=== PATIENT | male | born 1950 | race Caucasian/White ===

== ENCOUNTER 2020-10-21 10:15 | Outpatient (CLI) | payer MEDICARE ==
[2020-10-21 11:19] LABS: Estimated GFR-MDRD - POC Greater than 90
== END 2020-10-21 10:16 | disposition home or self-care (01) ==
LOC: CSHCT 10:15
PROVIDERS: ATTEND Otolaryngology Plastic Surgery within the Head & Neck
DX: R59.0 Localized enlarged lymph nodes (principal); J35.1 Hypertrophy of tonsils; J35.8 Other chronic diseases of tonsils and adenoids
CPT/HCPCS: 70491; 82565

== ENCOUNTER 2020-10-28 08:40 | Outpatient (CLI) | payer MEDICARE ==
[2020-10-28 10:35] LABS: Hemoglobin 15.6 g/dL (13.5-17.5)
[2020-10-28 10:51] LABS: Anion Gap 11 mmol/L (10-20); BUN (Urea Nitrogen) 20 mg/dL (8.4-25.7); Calc. Creatinine Clearance 0 mL/min (70-130); Calcium 8.9 mg/dL (7.8-10.44); Carbon Dioxide 28 mmol/L (23-31); Chloride 107 mmol/L (98-107); Glucose 143 mg/dL (83-110); Potassium 4.3 mmol/L (3.5-5.1); Sodium 142 mmol/L (136-145)
[2020-10-28 17:46] LABS: SARS-CoV-2 PCR by NAA Not Detected (NotDetected)
== END 2020-10-28 08:41 | disposition home or self-care (01) ==
LOC: CSHLAB 08:40
PROVIDERS: ATTEND Otolaryngology Plastic Surgery within the Head & Neck
DX: Z01.818 Encounter for other preprocedural examination (principal); Z20.822 Contact with and (suspected) exposure to COVID-19; R22.1 Localized swelling, mass and lump, neck; J35.1 Hypertrophy of tonsils
CPT/HCPCS: 80048; 85014; 85018; 87635; 93005; 93010; U0003; U0005

== ENCOUNTER 2020-10-31 08:45 | Day surgery (SDC) | payer MEDICARE ==
[2020-10-27 14:57] VITALS: BMI 29.0
[~2020-10-31 08:45] MED LIST: SUGAMMADEX SODIUM 500 MG/5 ML VIAL ONE
[2020-10-31] MEDS ORDERED: Lidocaine 1% MPF 2 ML VIAL ONE (09:59)
[2020-10-31] MEDS ORDERED: Rocuronium Bromide 10 MG/ML (10ML VIAL) ONE (10:36)
[2020-10-31] MEDS ORDERED: Lidocaine 1% PF 5 ML VIAL ONE (10:36)
[2020-10-31] MEDS ORDERED: Dexamethasone 20 MG/5 ML VIAL ONE (10:36)
[2020-10-31] MEDS ORDERED: Fentanyl 250 MCG/5 ML VIAL ONE (10:36)
[2020-10-31] MEDS ORDERED: Midazolam HCl 2 mg/2 ml Vial ONE (10:36)
[2020-10-31] MEDS ORDERED: Ondansetron PF 4 MG/2 ML Vial ONE (10:36)
[2020-10-31] MEDS ORDERED: PROPOFOL 20 ML ONE (10:36)
[2020-10-31] MEDS ORDERED: EPINEPHrine 1 MG/ML AMP ONE (11:06)
[2020-10-31] MEDS ORDERED: Silver Nitrate Application 1 EACH ONE (11:07)
[2020-10-31] MEDS ORDERED: Oxymetazoline HCl 0.05% ( 15 ML ) ONE (11:07)
[2020-10-31] MEDS ORDERED: ePHEDrine 50 MG/ML VIAL ONE (11:31)
[2020-10-31] MEDS ORDERED: Glycopyrrolate 0.2 MG/ML 5 ML SYRINGE ONE ×2 (11:52→12:30)
== END 2020-10-31 14:35 | disposition home or self-care (01) ==
LOC: CSHSDC 08:45
PROVIDERS: ATTEND Otolaryngology Plastic Surgery within the Head & Neck
PROC: 0CTPXZZ Resection of Tonsils, External Approach (ICD-10-PCS; principal; 2020-10-31)
PROC: 0CJS8ZZ Inspection of Larynx, Via Natural or Artificial Opening Endoscopic (ICD-10-PCS; 2020-10-31)
DX: C91.10 Chronic lymphocytic leukemia of B-cell type not having achieved remission (principal)
CPT/HCPCS: 88184; 88237; 88264; 88280; 88304; 88305; 88331; 88334; 88341; 88342; 88360; 88374; J0171; J1100; J2250; J2405; J2704; J3010; J3490